=== PATIENT | female | born 1970 | race Caucasian/White ===

== ENCOUNTER 2017-07-01 01:21 | Emergency (ER) | payer SELFPAY ==
[2017-07-01 01:27] VITALS: BMI 34.3
[2017-07-01] MEDS ORDERED: ASPIRIN PO ONE (01:30)
[2017-07-01] MEDS ORDERED: NITROSTAT SL ONE (01:39)
[2017-07-01] MEDS ORDERED: ASPIRIN 81 MG CHEWTAB ONE (01:39)
[2017-07-01] MEDS: NITROSTAT SL PRN ×2 (01:40→01:45)
[2017-07-01 01:56] LABS: BASOPHILS # (AUTO) 0.1 X10^3/uL (0.0-0.1); EOSINOPHILS # (AUTO) 0.1 x10^3/uL (0.0-0.2); EOSINOPHILS % (AUTO) 0.7 % (0.9-2.9); HEMATOCRIT 36.4 % (36.0-47.0); HEMOGLOBIN 12.2 g/dL (12.0-16.0); LYMPHOCYTES # (AUTO) 2.5 X10^3/uL (1.3-2.9); LYMPHOCYTES % (AUTO) 23.2 % (21.0-51.0); MEAN CORPUSCULAR HEMOGLOBIN 26.7 pg (27.0-34.0); MEAN CORPUSCULAR HGB CONC 33.6 g/dL (33.0-35.0); MEAN CORPUSCULAR VOLUME 79.2 fL (80.0-100.0); MEAN PLATELET VOLUME 8.2 fL (7.4-11.0); MONOCYTES # (AUTO) 0.6 x10^3/uL (0.3-0.8); MONOCYTES % (AUTO) 5.7 % (0.0-13.0); NEUTROPHILS # (AUTO) 7.6 x10^3/uL (2.2-4.8); NEUTROPHILS % (AUTO) 69.4 % (42.0-75.0); PLATELET COUNT 381 X10^3/uL (150.0-450.0); RED BLOOD COUNT 4.59 X10^6/uL (3.5-5.4); RED CELL DISTRIBUTION WIDTH 14.1 % (11.6-16.5); WHITE BLOOD COUNT 10.9 X10^3/uL (3.6-10.0)
--- NOTE | 2017-07-01 01:57 | DR.GENAD ---
HPI - Complaint/Symptoms Chief Complaint Doctors Comments: Patient presents with a history of recurrent posterior parietal headaches worse today usually medicated with otc medicine. Today the headache was worse, throbbing; my chest started hurting, worse today. The pain was not relieved by her usual OTC medication. There was no diaphoresis or radiation of pain. There is no history of heart disease. Patient does state that both she and her have been under a lot stress lately. Her daughter lost her job and they have been trying to help and her family. Chief Complaint:: PT STATES SHE BEGAN FEELING "UNEASY" LAST NIGHT. STATES THAT IT HAS GOTTEN PROGRESSIVELY WORSE AND NOW HER CHEST FEELS TIGHT, FEELS LIKE SHE CANNOT CATCH HER BREATH, AND IS VERY NAUSOUS - Source History Provided: Patient - Mode of Arrival Mode of Arrival: Ambulatory - Timing Onset of Chief Complaint: 06/30/17 PMH - PMH Past Medical History: Yes Past Medical History: Depression Past Surgical History: Yes Surgical History: Hysterectomy - Family History History of Family Medical Conditions: Yes Family Medical History: Cancer, [place], Hypertension - infectious screening Have you had fever, night sweats or hemotysis?: No Have you traveled outside the country in the last 6 months?: No ROS - Review of Systems Constitutional: No Symptoms Reported Eyes: No Symptoms Reported, See HPI ENTM: No Symptoms Reported Respiratoy: No Symptoms Reported Cardiovascular: No Symptoms Reported Gastrointestinal/Abdominal: No Symptoms Reported Genitourinary: No Symptoms Reported Neurological: No Symptoms Reported Musculoskeletal: No Symptoms Reported Integumentary: No Symptoms Reported Hematologic/Lymphatic: No Symptoms Reported Endocrine: No Symptoms Reported Psychiatric: No Symptoms Reported All Other Systems: Reviewed and Negative PE - Vital Signs Vitals: Temperature 98 F Pulse Rate [Left Radial] 98 Pulse Rate 107 Respiratory Rate 18 Blood Pressure [Left Arm] 122/73 Blood Pressure 127/82 O2 Sat by Pulse Oximetry 98 - General Limitations: No Limitations General Appearance: Alert, Anxious - Head Head Exam: Normal Inspection, Atraumatic - Eyes Eye exam: Normal Appearance, PERRL, EOMI - ENT ENT Exam: Normal Exam External Ear Exam: Normal External Inspection TM/Canal Exam: Bilateral Normal Nose Exam: Normal Nose Exam Mouth Exam: Normal Inspection Throat Exam: Normal Inspection - Neck Neck Exam: Normal Inspection, Full ROM - Chest Chest Inspection: Normal Inspection - Respiratory Respiratory Exam: Normal Lung Sounds Bilat Respiratory Exam: Bilateral Clear to Auscultation - Cardiovascular Cardiovascular Exam: Regular Rate, Normal Rhythm - Abdominal Exam Abdominal Exam: Normal Inspection Abdominal Tenderness: negative: RUQ, RLQ, LUQ, LLQ, Epigastrium, Suprapubic, Diffuse, Mild, Moderate, Severe, Other - Extremities Extremities Exam: Normal Inspection, Full ROM - Back Back Exam: Normal Inspection, Full ROM - Neurologic Neurological Exam: Alert, Oriented X3, CN II-XII Intact - Psychiatric Psychiatric Exam: Normal Affect, Normal Mood - Skin Skin Exam: Warm, Dry Course - Reevaluation 1st: Improved ROR - Labs Reviewed Result Diagrams: 07/01/17 01:30 07/01/17 01:30 Laboratory: WBC 10.9 X10^3/uL (3.6-10.0) H 07/01/17 01:30 RBC 4.59 X10^6/uL (3.5-5.4) 07/01/17 01:30 Hgb 12.2 g/dL (12.0-16.0) 07/01/17 01:30 Hct 36.4 % (36.0-47.0) 07/01/17 01:30 MCV 79.2 fL (80.0-100.0) L 07/01/17 01:30 MCH 26.7 pg (27.0-34.0) L 07/01/17 01:30 MCHC 33.6 g/dL (33.0-35.0) 07/01/17 01:30 RDW 14.1 % (11.6-16.5) 07/01/17 01:30 Plt Count 381 X10^3/uL (150.0-450.0) 07/01/17 01:30 MPV 8.2 fL (7.4-11.0) 07/01/17 01:30 Neut % 69.4 % (42.0-75.0) 07/01/17 01:30 Lymph % 23.2 % (21.0-51.0) 07/01/17 01:30 [place] % 5.7 % (0.0-13.0) 07/01/17 01:30 Eos % 0.7 % (0.9-2.9) L 07/01/17 01:30 Baso % 1.0 % (0.2-1.0) 07/01/17 01:30 Neut # 7.6 x10^3/uL (2.2-4.8) H 07/01/17 01:30 Lymph # 2.5 X10^3/uL (1.3-2.9) 07/01/17 01:30 [place] # 0.6 x10^3/uL (0.3-0.8) 07/01/17 01:30 Eos # 0.1 x10^3/uL (0.0-0.2) 07/01/17 01:30 Baso # 0.1 X10^3/uL (0.0-0.1) 07/01/17 01:30 Absolute Nucleated RBC 0.0 /100WBC 07/01/17 01:30 INR Target Range - 07/01/17 01:30 INR 0.99 (0.8-1.3) 07/01/17 01:30 PTT 31.8 SECONDS (22.9-36.5) 07/01/17 01:30 PTT Comment - 07/01/17 01:30 D-Dimer < 100 ng/mL (0-400) 07/01/17 01:30 Sodium 141 mmol/L (136-145) 07/01/17 01:30 Corrected Sodium 142 mmol/L (136-145) 07/01/17 01:30 Potassium 3.5 mmol/L (3.5-5.1) 07/01/17 01:30 Chloride 104 mmol/L (98-107) 07/01/17 01:30 Carbon Dioxide 28.1 mmol/L (21-32) 07/01/17 01:30 BUN 17 mg/dL (7-18) 07/01/17 01:30 Creatinine 1.09 mg/dL (0.55-1.02) H 07/01/17 01:30 Est GFR (MDRD) Af Amer > 60 (>60) 07/01/17 01:30 Est GFR (MDRD) Non-Af 58 (>60) L 07/01/17 01:30 Glucose 133 mg/dL (65-99) H 07/01/17 01:30 Calcium 8.6 mg/dL (8.5-10.1) 07/01/17 01:30 Corrected Calcium TNP 07/01/17 01:30 Magnesium 1.8 mg/dL (1.7-2.9) 07/01/17 01:30 Total Bilirubin 0.30 mg/dL (0.2-1.0) 07/01/17 01:30 AST 14 Units/L (15-37) L 07/01/17 01:30 ALT 32 Units/L (12-78) 07/01/17 01:30 Alkaline Phosphatase 143 Units/L (46-116) H 07/01/17 01:30 Creatine Kinase 84 Units/L (26-192) 07/01/17 01:30 CK-MB (CK-2) < 1.0 ng/mL (0-4.0) 07/01/17 01:30 CK/CKMB % Calc 1.2 % (<4) 07/01/17 01:30 Troponin I < 0.02 ng/mL (0-1.5) 07/01/17 01:30 Total Protein 7.5 g/dL (6.4-8.2) 07/01/17 01:30 Albumin 3.7 g/dL (3.4-5.0) 07/01/17 01:30 Globulin 3.8 g/dL (2.5-4.5) 07/01/17 01:30 Albumin/Globulin Ratio 1.0 Ratio (1.1-2.1) L 07/01/17 01:30 - XRAY XRAY Interpreted by: Radiologist (Brain CT: No acute intracranial abnormality,a mucous retention cyst noted within the left maxillary sinus. Chest: No acute cardioulmonary abnormality) - Diagnosis Discharge Problem: Anxiety Headache Qualifiers: Headache type: tension-type Headache chronicity pattern: episodic headache Intractability: not intractable Qualified Code(s): G44.219 - Episodic tension- type headache, not intractable - Discharge Plan Condition: Stable - Follow ups/Referrals Follow ups/Referrals: MALINA CHAWLA [Primary Care Provider] - 3 days - Instructions
[2017-07-01 02:15] LABS: ALANINE AMINOTRANSFERASE 32 Units/L (12-78); ALBUMIN 3.7 g/dL (3.4-5.0); ALKALINE PHOSPHATASE 143 Units/L (46-116); ASPARTATE AMINO TRANSFERASE 14 Units/L (15-37); BLOOD UREA NITROGEN 17 mg/dL (7-18); CALCIUM 8.6 mg/dL (8.5-10.1); CARBON DIOXIDE 28.1 mmol/L (21-32); CHLORIDE 104 mmol/L (98-107); COR NA(FOR HYPERGLY) 142 mmol/L (136-145); CREATININE 1.09 mg/dL (0.55-1.02); MAGNESIUM 1.8 mg/dL (1.7-2.9); SODIUM 141 mmol/L (136-145); TOTAL PROTEIN 7.5 g/dL (6.4-8.2); eGFR BLACK RACES > 60 (>60); eGFR NON BLACK RACES 58 (>60)
[2017-07-01 02:27] LABS: CKMB % 1.2 % (<4); CREATINE KINASE 84 Units/L (26-192); CREATINE KINASE MB < 1.0 ng/mL (0-4.0); TROPONIN I < 0.02 ng/mL (0-1.5)
--- NOTE | 2017-07-01 02:27 | CT ---
CT head without contrast Indication: Persistent headache Technique: Helical CT images of the brain were obtained without IV contrast. Reformatted images in th e coronal and sagittal planes were also generated for review. Comparison: None Findings: There is no intracranial hemorrhage, visible acute infarct, focal or generalized edema, ext ra-axial collection, hydrocephalus or mass. A mucous retention cyst is noted within the left maxillar y sinus. The remaining visualized paranasal sinuses and mastoid air cells are clear. No acute osseous or soft tissue abnormality is identified. Impression: No acute intracranial abnormality. Reported By:
--- NOTE | 2017-07-01 02:30 | RAD ---
Chest, one view Indication: Chest tightness Comparison: None Findings: Heart size is normal. No focal consolidation, significant effusion or pneumothorax is ident ified. Chronic likely posttraumatic deformity of the distal right clavicle is noted. There is no acut e osseous abnormality. Impression: No acute cardiopulmonary abnormality. Reported By:
[2017-07-01 03:52] VITALS: BP 117/71
== END 2017-07-01 03:47 | disposition home or self-care (01) ==
LOC: ER 01:21
DX: F41.8 Other specified anxiety disorders (principal); G44.219 Episodic tension-type headache, not intractable
CPT/HCPCS: 36415; 70450; 71045; 80053; 82550; 82553; 83735; 84484; 85025; 85378; 85610; 85730; 93005; 93010; 96365; 99283; 99284; A4216; A4222